=== PATIENT | female | born 2000 | race Asian ===

== ENCOUNTER 2021-11-12 00:53 | Emergency (ER) | payer BC, MEDICAID ==
[~2021-11-12] VITALS: Ht 160 cm; Wt 49.9 kg
[2021-11-12 01:21] VITALS: BP_SYST 119
--- NOTE | 2021-11-12 01:30 | NUR ---
PT BIBA OFFICERS FOR OK TO BOOK, ABRASION TO RT ARM, NO BLEEDING NOTED. PT IN NAD.
--- NOTE | 2021-11-12 02:38 | NUR ---
DR GOVEA TO SEE PT, OFFICERS AT BEDSIDE
--- NOTE | 2021-11-12 03:08 | NUR ---
ABRASION CLEANED AND BANDAID APPLIED.
[2021-11-12 03:19] VITALS: BP_SYST 123
--- NOTE | 2021-11-12 03:20 | NUR ---
Patient given written and verbal discharge instructions and verbalizes understanding. ER MD discussed with patient the results and treatment provided. Patient in stable condition. ID arm band removed. Patient educated on pain management and to follow up with PMD. Pain Scale . Opportunity for questions provided and answered. Medication side effect fact sheet provided.
== END 2021-11-12 03:19 ==
LOC: SED 00:53
DX: S50.811A Abrasion of right forearm, initial encounter (principal); W18.39XA Other fall on same level, initial encounter; Y93.89 Activity, other specified; Y92.89 Other specified places as the place of occurrence of the external cause; Y99.8 Other external cause status
CPT/HCPCS: 99283